=== PATIENT | female | born 1975 | race Caucasian/White ===

== ENCOUNTER 2018-04-20 19:07 | Emergency (ER) | payer MEDICAID ==
--- NOTE | 2018-04-20 19:23 | EDM.PDOC ---
ED HPI GENERAL MEDICAL PROBLEM - General Chief Complaint: General Stated Complaint: eye pain Time Seen by Provider: 04/20/18 19:20 Source of Information: Reports: Patient, Old Records ([facility] chart/EMR) History Limitations: Reports: No Limitations - History of Present Illness INITIAL COMMENTS - FREE TEXT/NARRATIVE: Patient drove herself to the emergency room via private automobile for evaluation of bilateral high "burning" since initiation of her Polytrim ophthalmic solution, which she received from a walk in clinic in [place] 2 days ago. She has had some URI symptoms for the last few days with mild bilateral eye irritation 2 days ago with conjunctivitis apparently diagnosed at that time. Note that she is allergic to sulfa with no significant severe allergic reaction secondary to Polytrim prescription. She also does have a history of allergic rhinitis. No recent history of abdominal pain, heartburn, nausea, diarrhea, melena, gross hematochezia, or any food intolerance, including fatty foods, etc.. The patient also denies any recent fever, cough, wheezing, dyspnea , etc. with previous URI symptoms actually improved at this time. 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: Other Medication(s) (Polytrim as above) eyes Pain Score (Numeric/FACES): 1 - Related Data Allergies Allergy/AdvReac Type Severity Reaction Status Date / Time ciprofloxacin [From Cipro] Allergy Hives Verified 04/20/18 19:10 ciprofloxacin HCl Allergy Hives Verified 04/20/18 19:10 [From Cipro] Penicillins Allergy Hives Verified 04/20/18 19:10 Sulfa (Sulfonamide Allergy Hives Verified 04/20/18 19:10 Antibiotics) Home Meds: Home Meds Escitalopram [Lexapro] 20 mg PO DAILY 04/20/18 [History] Fexofenadine [Latrice] 60 mg PO DAILY 04/20/18 [History] Fluticasone Propionate [Flonase] 1 spray NS BID 04/20/18 [History] hydrOXYzine HCl [hydrOXYzine] 1 - 2 tab PO BEDTIME PRN 04/20/18 [History] Past Medical History HEENT History: Reports: Allergic Rhinitis 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: Musculoskeletal History: Reports: Arthritis, Neck Pain, Chronic, Osteoarthritis Psychiatric History: Reports: Anxiety, Depression Dermatologic History: Reports: Urticaria, Other (See Below) Other Dermatologic History: Recurrent idiopathic urticaria - Past Surgical History Female Surgical History: Reports: Section, Other (See Below) Other Female Surgeries/Procedures: on 08/05/13 - Past Imaging History Past Imaging History: Reports: CAT Scan (CT of the abdomen and pelvis on ), MRI (MRI of the C-spine on 05/22/17), Ultrasound (Right breast ultrasound on 01/07/03) Social & Family History - Tobacco Use Smoking Status *Q: Former Smoker Tobacco Use Within Last Twelve Months: No Years of Tobacco use: 2 Packs/Tins Daily: 0.1 Packs/Tins Daily Comment: Smoked about 2 cigarettes per day in her early 20s. 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 ED EXAM, GENERAL - Physical Exam Exam: See Below Exam Limited By: No Limitations General Appearance: Alert, WD/WN, No Apparent Distress Eye Exam: Bilateral Eye: Conjunctival Injection (Minimal), EOMI, PERRL Ears: Normal External Exam, Normal Canal, Hearing Grossly Normal, Normal TMs Nose: Normal Mucosa, No Blood, Clear Rhinorrhea Throat/Mouth: Normal Inspection, Normal Lips, Normal Teeth, Normal Gums, Normal Oropharynx, Normal Voice, No Airway Compromise. No: Dysphagia, Perioral Cyanosis Head: Atraumatic, Normocephalic. No: Facial Swelling, Facial Tenderness, Sinus Tenderness Neck: Normal Inspection, Supple, Non-Tender, Full Range of Motion. No: Lymphadenopathy (L), Lymphadenopathy (R), Thyromegaly Respiratory/Chest: No Respiratory Distress, Lungs Clear, Normal Breath Sounds, No Accessory Muscle Use, Chest Non-Tender. No: Pleural Rub, Retractions Cardiovascular: Normal Peripheral Pulses, Regular Rate, Rhythm, No Edema, No Gallop, No JVD, No Murmur, No Rub. No: Gallop/S3, Gallop/S4, Friction Rub Peripheral Pulses: 2+: Radial (L), Radial (R) GI/Abdominal: Normal Bowel Sounds, Soft, Non-Tender, No Organomegaly, No Distention, No Abnormal Bruit, No Mass (Female) Exam: Deferred Rectal (Female) Exam: Deferred Back Exam: Normal Inspection, Full Range of Motion. No: CVA Tenderness (L), CVA Tenderness (R), Muscle Spasm Extremities: Normal Inspection, Normal Range of Motion, Non-Tender, Normal Capillary Refill, No Pedal Edema Neurological: Alert, Oriented, CN II-XII Intact, Normal Cognition, Normal Gait, No Motor/Sensory Deficits Psychiatric: Normal Affect, Normal Mood Skin Exam: Warm, Dry, Intact, Normal Color, No Rash. No: Diaphoretic, Wound/ Incision Lymphatic: No Adenopathy Course - Vital Signs Last Recorded V/S: Last Vital Signs Temp 37.0 C 04/20/18 19:22 Pulse 77 04/20/18 19:22 Resp 14 04/20/18 19:22 BP 118/78 04/20/18 19:22 Pulse Ox 100 04/20/18 19:22 Vital Signs - 24 hr 04/20/18 19:22 Temperature [ 37.0 C Oral] Pulse, 77 Peripheral [ Left Pulse Oximetry] Respiratory 14 Rate Blood Pressure 118/78 [Left Upper Arm ] O2 Sat by Pulse 100 Oximetry - Orders/Labs/Meds Labs: None Meds: None - Radiology Interpretation Free Text/Narrative:: None Departure - Departure Time of Disposition: 19:38 Disposition: Home, Self-Care 01 Condition: Good Clinical Impression: Mixed anxiety depressive disorder Allergic rhinitis Qualifiers: Allergic rhinitis trigger: unspecified Allergic rhinitis seasonality: unspecified Qualified Code(s): J30.9 - Allergic rhinitis, unspecified Conjunctivitis Qualifiers: Conjunctivitis type: acute Acute conjunctivitis type: unspecified Laterality: bilateral Qualified Code(s): H10.33 - Unspecified acute conjunctivitis, bilateral - Discharge Information *PRESCRIPTION DRUG MONITORING PROGRAM REVIEWED*: Not Applicable *COPY OF PRESCRIPTION DRUG MONITORING REPORT IN PATIENT PEDRO LUIS: Not Applicable Instructions: Allergic Conjunctivitis, Adult, [id number], Allergies, Adult, [id number], Viral Conjunctivitis, Adult Referrals: PCP,None [Primary Care Provider] - Forms: ED Department Discharge Additional Instructions: 1. Follow up with your regular provider in 10-14 days as needed, if symptoms persist. Bring these discharge instructions with you to that visit.. 2. Artificial tears 2 drops in both eyes 2 hours as needed 3. May change OTC Latrice-D, if plain Latrice is no longer effective. - Problem List & Annotations (1) Conjunctivitis SNOMED Code(s): 2319932 Code(s): H10.9 - UNSPECIFIED CONJUNCTIVITIS Status: Acute Priority: High Onset Date: ~04/18/18 Annotation/Comment:: Based on clinical exam appears to be more allergic conjunctivitis rather than either viral or bacterial conjunctivitis. Symptomatic relief as per discharge instructions. She will discontinue her Polytrim with no true allergic reaction or complications despite her previous allergy to sulfur. Qualifiers: Conjunctivitis type: acute Acute conjunctivitis type: unspecified Laterality: bilateral Qualified Code(s): H10.33 - Unspecified acute conjunctivitis, bilateral (2) Allergic rhinitis SNOMED Code(s): 06939761 Code(s): J30.9 - ALLERGIC RHINITIS, UNSPECIFIED Status: Acute Priority: High Annotation/Comment:: Likely exacerbation of her allergic rhinitis. She is congratulated her about her compliance with Flonase. She should reinitiate her OTC Latrice at this time with change to Latrice-D, if symptoms remain refractory to therapy as per discharge instructions. Qualifiers: Allergic rhinitis trigger: unspecified Allergic rhinitis seasonality: unspecified Qualified Code(s): J30.9 - Allergic rhinitis, unspecified (3) Mixed anxiety depressive disorder SNOMED Code(s): 608911261 Code(s): F41.8 - OTHER SPECIFIED ANXIETY DISORDERS Status: Chronic Priority: Medium Annotation/Comment:: Stable by history - Problem List Review Problem List Initiated/Reviewed/Updated: Yes - Assessment/Plan Assessment:: As above Plan: As above.
[2018-04-20 19:28] VITALS: BP 118/78
== END 2018-04-20 19:38 | disposition home or self-care (01) ==
LOC: LL.ED 19:07
DX: H10.33 Unspecified acute conjunctivitis, bilateral (principal); J30.9 Allergic rhinitis, unspecified; F41.8 Other specified anxiety disorders; F32.9 Major depressive disorder, single episode, unspecified; Z79.899 Other long term (current) drug therapy; Z87.891 Personal history of nicotine dependence; Z88.1 Allergy status to other antibiotic agents; Z88.0 Allergy status to penicillin; Z88.2 Allergy status to sulfonamides
CPT/HCPCS: 99283

== ENCOUNTER 2018-12-20 10:24 | Day surgery (SDC) | payer MEDICAID ==
[~2018-12-20 10:24] MED LIST: Lactated Ringers 1,000 ML IV SCH; Midazolam 1 MG/ML 2 ML SDV ONE; Propofol 200 MG/20 ML SDV ONE; Sodium Chloride 0.9% 10 ML Syringe FLUSH PRN
--- NOTE | 2018-12-20 11:07 | PCM.HPR ---
H & P Addendum review - H & P Addendum Review Date of Original H & P: 12/04/18 Date Reviewed: 12/20/18 Time Reviewed: 11:06 Patient was Examined: No Changes
--- NOTE | 2018-12-20 11:42 | PCM.OPNOTE ---
- General Post-Op/Procedure Note Date of Surgery/Procedure: 12/20/18 Operative Procedure(s): Colonoscopy Findings: Few Sig tics Pre Op Diagnosis: Lower Abd Pain Post-Op Diagnosis: Same Anesthesia Technique: MAC Primary Surgeon: Moises Jordan Anesthesia Provider: Angie Bower Complications: None Condition: Good
[2018-12-20] MEDS ORDERED: Propofol 200 MG/20 ML SDV ONE (11:46)
--- NOTE | 2018-12-21 09:12 | OR ---
Date of Procedure: 12/20/2018 PREOPERATIVE DIAGNOSIS: Lower abdominal pain. POSTOPERATIVE DIAGNOSIS: Sigmoid diverticulosis. PROCEDURE: Colonoscopy. ANESTHESIA: IV sedation. DESCRIPTION OF PROCEDURE: The patient was brought to the procedure room where she was placed on her left side and IV sedation administered. Digital rectal exam was performed which was normal. Colonoscope was inserted and advanced to the level of the cecum without difficulty. Cecal position was confirmed by identifying the appendiceal lumen and ileocecal valve. Prep was good and surfaces were well visualized. Upon withdrawing the scope, the ascending, transverse, and descending colon were normal in appearance. Sigmoid colon has a few small diverticula present. Rectum was normal and retroflexion was normal. Air was removed and the scope withdrawn. The patient tolerated the procedure well and returned to Recovery in stable condition. No source of the patient's pain was identified on the exam today. She could consider having CT scan of the abdomen and pelvis performed if symptoms continue. She should undergo routine colon screening again at age 52. PABLITO ADAMES MD /[id number]
== END 2018-12-20 13:15 | disposition home or self-care (01) ==
LOC: LL.SDS 10:24
PROVIDERS: ATTEND Surgery
DX: K57.30 Diverticulosis of large intestine without perforation or abscess without bleeding (principal); R07.0 Pain in throat; M79.673 Pain in unspecified foot; K11.7 Disturbances of salivary secretion; Z79.899 Other long term (current) drug therapy; Z88.1 Allergy status to other antibiotic agents; Z88.0 Allergy status to penicillin; Z88.2 Allergy status to sulfonamides
CPT/HCPCS: 81025; J2250; J2704; J7120

== ENCOUNTER → 2019-05-21 | Outpatient (CLI) | payer MEDICAID | LOC: LL.CLIN 14:30 | PROVIDERS: ATTEND Nurse Practitioner | DX: N39.0 Urinary tract infection, site not specified (principal); N89.8 Other specified noninflammatory disorders of vagina | CPT/HCPCS: 81001; 87210 ==

== ENCOUNTER 2019-07-05 22:23 | Emergency (ER) | payer MEDICAID ==
[2019-07-05] MEDS ORDERED: Sodium Chloride 0.9% 10 ML Syringe FLUSH PRN (22:39)
[2019-07-05] MEDS ORDERED: Pantoprazole 40 MG Vial IVPUSH ONE (22:39)
[2019-07-05] MEDS ORDERED: Famotidine 20 MG/2 ML SDV IVPUSH ONE (22:39)
--- NOTE | 2019-07-05 22:39 | EDM.PDOC ---
ED HPI GENERAL MEDICAL PROBLEM - General Chief Complaint: General Stated Complaint: L RIB PAIN Time Seen by Provider: 07/05/19 22:30 Source of Information: Reports: Patient, Old Records ([facility] chart/EMR), Significant Other History Limitations: Reports: No Limitations - History of Present Illness INITIAL COMMENTS - FREE TEXT/NARRATIVE: The patient was brought to the emergency room via private automobile by her significant other for evaluation of 8/10 sharp left upper quadrant abdominal pain with symptoms starting about 2 hours prior to arrival. Note that the patient did eat some japanese fries and a cheeseburger at about 20:00 hours this evening. She did have a normal bowel movement yesterday. Note that the patient has been taking about 4 OTC tablets of ibuprofen during the last couple of days secondary to a recent tattoo, however she did not have any ibuprofen today. She denies any known exposure to infection, food poisoning, etc. No recent history of heartburn, nausea, diarrhea, melena, gross hematochezia, or any food intolerance, including fatty foods, etc.. She has not taken any medications for the above symptoms to this point. Patient also denies any recent gross hematuria , colic, or other UTI symptoms. Her LMP 1.5 weeks ago was somewhat heavy however otherwise normal. The patient also denies any recent fever, cough, wheezing, dyspnea, etc.. Onset: Today, Gradual Onset Date: 07/05/19 Onset Time: 20:30 Duration: Constant, Getting Worse Location: Reports: Abdomen. Denies: Head, Face, Neck, Chest, Back, Pelvis, Upper Extremity, Left, Upper Extremity, Right, Radiates to Quality: Reports: Same as Previous Episode, Sharp Severity: Moderate Improves with: Reports: None Worsens with: Reports: None Context: Reports: Other (As above). 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: Other (see below) (None) LUQ Pain Score (Numeric/FACES): 8 - Related Data Allergies Allergy/AdvReac Type Severity Reaction Status Date / Time ciprofloxacin [From Cipro] Allergy Hives Verified 07/05/19 22:24 ciprofloxacin HCl Allergy Hives Verified 07/05/19 22:24 [From Cipro] Penicillins Allergy Hives Verified 07/05/19 22:24 Sulfa (Sulfonamide Allergy Hives Verified 07/05/19 22:24 Antibiotics) Home Meds: Home Meds Fluticasone Propionate [Flonase] 1 spray NS BID 04/20/18 [History] hydrOXYzine HCl [hydrOXYzine] 1 tab PO DAILY PRN 04/20/18 [History] Phentermine HCl 0.5 cap PO DAILY 12/20/18 [History] busPIRone [Buspar] 10 mg PO DAILY 12/20/18 [History] Omeprazole 20 mg PO BIDAC #30 cap.sr 07/05/19 [Rx] Past Medical History HEENT History: Reports: Allergic Rhinitis, Sinusitis. Denies: Cataract, Glaucoma, Hard of Hearing, Impaired Vision, Macular Degeneration, Retinal Detachment Cardiovascular History: Reports: Other (See Below). Denies: Afib, Aneurysm, Arrhythmia, Blood Clots/VTE/DVT, CAD, Heart Murmur, High Cholesterol, Hypertension, SC, Syncope Other Cardiovascular History: She does not know her cholesterol status. Respiratory History: Reports: None. Denies: Asthma, Bronchitis, Recurrent, COPD , Intubation, Previous, PE, Pneumonia, Recurrent, Pneumothorax, Pulmonary Fibrosis, Sleep Apnea, TB Gastrointestinal History: Reports: Chronic Constipation, Chronic Diarrhea, Diverticulosis, Other (See Below). Denies: Celiac Disease, Cholelithiasis, Gastritis, GERD, GI Bleed, Hiatal Hernia, Inflammatory Bowel Disease, Irritable Bowel Syndrome, Jaundice, PUD Other Gastrointestinal History: Fluctuates between constipation and diarrhea. Sigmoid diverticulosis by colonoscopy. Genitourinary History: Reports: UTI, Recurrent. 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 Denies: Amputation, Fracture, Gout, RA, SLE Neurological History: Reports: None. Denies: Cerebral Aneurysms, Concussion, CVA, Headaches, Chronic, Head Trauma, Migraines, MS, Parkinson's, Seizure, TIA, Vertigo Psychiatric History: Reports: Anxiety, Depression. Denies: Abuse, Victim of, ADD, ADHD, Psych Hospitalization(s), PTSD, Suicide Attempt, Suicidal Ideation Endocrine/Metabolic History: Reports: Diabetes, Gestational, Other (See Below). Denies: Diabetes, Type I, Diabetes, Type II, Diabetes Mellitus, Type 3c, Hypothyroidism, IDDM Other Endocrine/Metabolic History: Gestational diabetes with second as above. Hematologic History: Reports: None. Denies: Anemia, Blood Transfusion(s), Iron Deficiency Immunologic History: Reports: None. Denies: AIDS, HIV, SLE Oncologic (Cancer) History: Denies: Basal Cell Carcinoma, Breast, Cervix, Hodgkin's Lymphoma, Leukemia, Lymphoma, Malignant Melanoma, Non-Hodgkin's Lymphoma, Ovarian, Squamous Cell Carcinoma, Uterine Dermatologic History: Reports: Urticaria, Other (See Below). Denies: Eczema, Psoriasis Other Dermatologic History: Recurrent idiopathic urticaria - Infectious Disease History Infectious Disease History: Reports: Chicken Pox. Denies: C-Difficile, Measles , Meningitis, Mononucleosis, MRSA, Mumps, Pertussis (Whooping Cough), Rheumatic Fever, Rubella, Scarlet Fever, Shingles, TB, VRE - Past Surgical History Head Surgeries/Procedures: Reports: None HEENT Surgical History: Reports: Oral Surgery, Other (See Below). Denies: Adenoidectomy, Eye Surgery, Laser Surgery, LASIK, Myringotomy w Tube(s), Naso- Sinus Surgery, Tonsillectomy Other HEENT Surgeries/Procedures: B[place] teeth extraction 4 at age 32. Cardiovascular Surgical History: Reports: None. Denies: Varicose Respiratory Surgical History: Reports: None. Denies: Thoracentesis GI Surgical History: Reports: Colonoscopy, Other (See Below). Denies: Appendectomy, EGD, Hernia, Abdominal, Hernia, Inguinal, Hernia Repair/Other Other GI Surgeries/Procedures: Colonoscopy on 12/20/18. Female Surgical History: Reports: Section, Other (See Below). Denies: Breast Biopsy, D&C, Oophorectomy, Salpingo-Oophorectomy, Tubal Ligation Other Female Surgeries/Procedures: on 08/05/13 as above. Endocrine Surgical History: Reports: None. Denies: Thyroid Biopsy Neurological Surgical History: Reports: None. Denies: C-Spine, Discectomy, Laminectomy, Lumbar Spine, Sacral Spine, Spinal Fusion, Thoracic Spine, Vertebroplasty Musculoskeletal Surgical History: Denies: Arthroscopic Procedure, Carpal Tunnel , Ganglion Cyst, Joint Replacement, Shoulder Surgery Oncologic Surgical History: Reports: None Dermatological Surgical History: Reports: None - Past Imaging History Past Imaging History: Reports: CAT Scan (CT of the abdomen and pelvis using stone protocol on 04/11/[address] scan of the abdomen and pelvis on 04/27.), MRI (MRI of the thoracic spine on 02/18/19. MRI of the C-spine on ), Ultrasound (Bilateral renal ultrasound on 09/04/18. Right breast ultrasound on 01/07/03.) Social & Family History - Family History GI: Reports: Other (See Below) (Son with gastroschisis) - Tobacco Use Smoking Status *Q: Former Smoker Tobacco Use Within Last Twelve Months: No Years of Tobacco use: 2 Packs/Tins Daily: 0.1 Packs/Tins Daily Comment: 2 cigarettes per day in her early 20s. Used Tobacco, but Quit: Yes Smoking Cessation Information Provided To Patient: No Second Hand Smoke Exposure: No Second Hand Smoke Education Provided: No - Caffeine Use Caffeine Use: Reports: Soda (3 Mountain Dew's per day). Denies: Coffee, Energy Drinks, Tea - Alcohol Use Alcohol Use History: Yes Days Per Week of Alcohol Use: 0 Number of Drinks Per Day: 2 Number of Drinks Per Day Comment: Usually once per month. No previous DWIs, problems with alcohol abuse, etc. 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 ED EXAM, GENERAL - Physical Exam Exam: See Below Exam Limited By: No Limitations General Appearance: Alert, WD/WN, No Apparent Distress Eye Exam: Bilateral Eye: EOMI, Normal Inspection (No nystagmus), PERRL Ears: Normal External Exam, Normal Canal, Hearing Grossly Normal, Normal TMs Nose: Normal Inspection, Normal Mucosa, No Blood Throat/Mouth: Normal Inspection, Normal Lips, Normal Teeth, Normal Gums, Normal Oropharynx, Normal Voice, No Airway Compromise. No: Dysphagia, Perioral Cyanosis Head: Atraumatic, Normocephalic. No: Facial Swelling, Facial Tenderness, Sinus Tenderness Neck: Normal Inspection, Supple, Non-Tender, Full Range of Motion. No: Carotid Bruit, Lymphadenopathy (L), Lymphadenopathy (R), Thyromegaly Respiratory/Chest: No Respiratory Distress, Lungs Clear, Normal Breath Sounds, No Accessory Muscle Use, Chest Non-Tender. No: Pleural Rub, Retractions Cardiovascular: Normal Peripheral Pulses, Regular Rate, Rhythm, No Edema, No Gallop, No JVD, No Murmur, No Rub. No: Gallop/S3, Gallop/S4, Friction Rub Peripheral Pulses: 2+: Radial (L), Radial (R), Dorsalis Pedis (L), Dorsalis Pedis (R) GI/Abdominal: Normal Bowel Sounds, Soft, Non-Tender, No Organomegaly, No Distention, No Abnormal Bruit, No Mass. No: Guarding (Female) Exam: Deferred Rectal (Female) Exam: Normal Exam, Normal Rectal Tone, Heme - Stool. No: Black Stool, Bloody Stool, Fecal Impaction, Hemorrhoids, Tenderness (No Jeremy space tenderness) Back Exam: Normal Inspection, Full Range of Motion. No: CVA Tenderness (L), CVA Tenderness (R), Muscle Spasm Extremities: Normal Inspection, Normal Range of Motion, Non-Tender, No Pedal Edema, Normal Capillary Refill. No: Graeme's Sign Neurological: Alert, Oriented, CN II-XII Intact, Normal Cognition, Normal Gait, Normal Reflexes (Negative Babinski's), No Motor/Sensory Deficits Psychiatric: Normal Affect, Normal Mood Skin Exam: Warm, Dry, Intact, Normal Color, No Rash, Stud(s) (Right lateral nasal), Tattoo(s) (Multiple). No: Diaphoretic, Wound/Incision Lymphatic: No Adenopathy Course - Vital Signs Last Recorded V/S: Last Vital Signs Temp 36.6 C 07/05/19 22:25 Pulse 104 H 07/05/19 22:25 Resp 16 07/05/19 22:25 BP 145/84 H 07/05/19 22:25 Pulse Ox 100 07/05/19 22:25 Vital Signs - 24 hr 07/05/19 22:25 Temperature [ 36.6 C Temporal] Pulse, 104 H Peripheral [ Pulse Oximetry] Respiratory 16 Rate Blood Pressure 145/84 H [Right Upper Arm] O2 Sat by Pulse 100 Oximetry - Orders/Labs/Meds Orders: Active Orders 24 hr Category Date Time Status Peripheral IV Care [RC] . DIRECTED Care 07/05/19 22:40 Active Abdomen Series w Chest 1V [CR] Stat Exams 07/05/19 22:39 Taken CULTURE URINE [RM] Stat Lab 07/05/19 22:39 Ordered Obtain Past Medical Record [OM.PC] Urgent Oth 07/05/19 22:39 Active Peripheral IV Insertion Adult [OM.PC] Stat Oth 07/05/19 22:39 Ordered Resuscitation Status Stat Resus Stat 07/05/19 22:39 Ordered Labs: Laboratory Tests 07/05/19 07/05/19 07/05/19 Range/Units 22:45 22:45 22:45 WBC 10.5 H (4.0-10.2) K/uL RBC 4.42 (3.77-5.09) M/uL Hgb 12.7 (11.7-15.5) g/dL Hct 38.5 (34.0-46.0) % MCV 87.1 (84.0-98.0) fL MCH 28.7 (28.2-33.3) pg MCHC 33.0 (31.7-36.0) g/dL RDW 13.2 (11.2-14.1) % Plt Count 284 (150-350) K/uL Neut % (Auto) 59.7 (45.0-80.0) % Lymph % (Auto) 25.9 (10.0-50.0) % [place] % (Auto) 12.2 (2.0-14.0) % Eos % (Auto) 2.0 (0.0-5.0) % Baso % (Auto) 0.2 (0.0-2.0) % Neut # (Auto) 6.24 (1.40-7.00) K/uL Lymph # (Auto) 2.71 (0.50-3.50) K/uL [place] # (Auto) 1.28 H (0.00-1.00) K/uL Eos # (Auto) 0.21 (0.00-0.50) K/uL Baso # (Auto) 0.02 (0.00-0.20) K/uL PT (9.5-12.0) SEC INR APTT (21.0-31.3) SEC Sodium (136-145) mmol/L Potassium (3.5-5.1) mmol/L Chloride (98-107) mmol/L Carbon Dioxide (21.0-32.0) mmol/L BUN (7-18) mg/dL Creatinine (0.51-1.17) mg/dL Est Cr Clr Drug Dosing mL/min Estimated GFR (MDRD) mL/min Glucose (74-106) mg/dL Hemoglobin A1c 5.4 (4.3-5.7) % Lactic Acid (0.4-2.0) mmol/L Uric Acid (2.6-7.2) mg/dL Calcium (8.5-10.1) mg/dL Magnesium (1.8-2.4) mg/dL Total Bilirubin (0.2-1.0) mg/dL AST (15-37) U/L ALT (12-78) U/L Alkaline Phosphatase (46-116) IU/L Total Protein (6.4-8.2) g/dL Albumin (3.4-5.0) g/dL Amylase 64 (25-115) U/L Lipase (73-393) U/L HCG, Qual (NEGATIVE) Specimen Type Urine Color Urine Appearance Urine pH (5.0-9.0) Ur Specific [place] (1.005-1.030) Urine Protein (NEGATIVE) mg/dL Urine Glucose (UA) (NEGATIVE) mg/dL Urine Ketones (NEGATIVE) mg/dL Urine Occult Blood (NEGATIVE) Urine Nitrite (NEGATIVE) Urine Bilirubin (NEGATIVE) Urine Urobilinogen (0.2-1.0) E.U./dL Ur Leukocyte Esterase (NEGATIVE) Urine RBC /HPF Urine WBC /HPF Ur Epithelial Cells /LPF Urine Bacteria (NONE TO FEW) /HPF 07/05/19 07/05/19 07/05/19 Range/Units 22:45 22:45 22:45 WBC (4.0-10.2) K/uL RBC (3.77-5.09) M/uL Hgb (11.7-15.5) g/dL Hct (34.0-46.0) % MCV (84.0-98.0) fL MCH (28.2-33.3) pg MCHC (31.7-36.0) g/dL RDW (11.2-14.1) % Plt Count (150-350) K/uL Neut % (Auto) (45.0-80.0) % Lymph % (Auto) (10.0-50.0) % [place] % (Auto) (2.0-14.0) % Eos % (Auto) (0.0-5.0) % Baso % (Auto) (0.0-2.0) % Neut # (Auto) (1.40-7.00) K/uL Lymph # (Auto) (0.50-3.50) K/uL [place] # (Auto) (0.00-1.00) K/uL Eos # (Auto) (0.00-0.50) K/uL Baso # (Auto) (0.00-0.20) K/uL PT 10.9 (9.5-12.0) SEC INR 1.0 APTT 32.2 H (21.0-31.3) SEC Sodium 139 (136-145) mmol/L Potassium 3.2 L (3.5-5.1) mmol/L Chloride 100 (98-107) mmol/L Carbon Dioxide 28.0 (21.0-32.0) mmol/L BUN 11 (7-18) mg/dL Creatinine 0.89 (0.51-1.17) mg/dL Est Cr Clr Drug Dosing 77.87 mL/min Estimated GFR (MDRD) > 60 mL/min Glucose 120 H (74-106) mg/dL Hemoglobin A1c (4.3-5.7) % Lactic Acid 1.2 (0.4-2.0) mmol/L Uric Acid 4.6 (2.6-7.2) mg/dL Calcium 8.9 (8.5-10.1) mg/dL Magnesium 2.0 (1.8-2.4) mg/dL Total Bilirubin 0.3 (0.2-1.0) mg/dL AST 16 (15-37) U/L ALT 25 (12-78) U/L Alkaline Phosphatase 105 (46-116) IU/L Total Protein 7.7 (6.4-8.2) g/dL Albumin 3.9 (3.4-5.0) g/dL Amylase (25-115) U/L Lipase 119 (73-393) U/L HCG, Qual (NEGATIVE) Specimen Type Urine Color Urine Appearance Urine pH (5.0-9.0) Ur Specific [place] (1.005-1.030) Urine Protein (NEGATIVE) mg/dL Urine Glucose (UA) (NEGATIVE) mg/dL Urine Ketones (NEGATIVE) mg/dL Urine Occult Blood (NEGATIVE) Urine Nitrite (NEGATIVE) Urine Bilirubin (NEGATIVE) Urine Urobilinogen (0.2-1.0) E.U./dL Ur Leukocyte Esterase (NEGATIVE) Urine RBC /HPF Urine WBC /HPF Ur Epithelial Cells /LPF Urine Bacteria (NONE TO FEW) /HPF 07/05/19 07/05/19 Range/Units 22:45 23:32 WBC (4.0-10.2) K/uL RBC (3.77-5.09) M/uL Hgb (11.7-15.5) g/dL Hct (34.0-46.0) % MCV (84.0-98.0) fL MCH (28.2-33.3) pg MCHC (31.7-36.0) g/dL RDW (11.2-14.1) % Plt Count (150-350) K/uL Neut % (Auto) (45.0-80.0) % Lymph % (Auto) (10.0-50.0) % [place] % (Auto) (2.0-14.0) % Eos % (Auto) (0.0-5.0) % Baso % (Auto) (0.0-2.0) % Neut # (Auto) (1.40-7.00) K/uL Lymph # (Auto) (0.50-3.50) K/uL [place] # (Auto) (0.00-1.00) K/uL Eos # (Auto) (0.00-0.50) K/uL Baso # (Auto) (0.00-0.20) K/uL PT (9.5-12.0) SEC INR APTT (21.0-31.3) SEC Sodium (136-145) mmol/L Potassium (3.5-5.1) mmol/L Chloride (98-107) mmol/L Carbon Dioxide (21.0-32.0) mmol/L BUN (7-18) mg/dL Creatinine (0.51-1.17) mg/dL Est Cr Clr Drug Dosing mL/min Estimated GFR (MDRD) mL/min Glucose (74-106) mg/dL Hemoglobin A1c (4.3-5.7) % Lactic Acid (0.4-2.0) mmol/L Uric Acid (2.6-7.2) mg/dL Calcium (8.5-10.1) mg/dL Magnesium (1.8-2.4) mg/dL Total Bilirubin (0.2-1.0) mg/dL AST (15-37) U/L ALT (12-78) U/L Alkaline Phosphatase (46-116) IU/L Total Protein (6.4-8.2) g/dL Albumin (3.4-5.0) g/dL Amylase (25-115) U/L Lipase (73-393) U/L HCG, Qual Negative (NEGATIVE) Specimen Type Urinvoid Urine Color Yellow Urine Appearance Clear Urine pH 6.5 (5.0-9.0) Ur Specific [place] 1.010 (1.005-1.030) Urine Protein Negative (NEGATIVE) mg/dL Urine Glucose (UA) Negative (NEGATIVE) mg/dL Urine Ketones Negative (NEGATIVE) mg/dL Urine Occult Blood Negative (NEGATIVE) Urine Nitrite Negative (NEGATIVE) Urine Bilirubin Negative (NEGATIVE) Urine Urobilinogen 0.2 (0.2-1.0) E.U./dL Ur Leukocyte Esterase Negative (NEGATIVE) Urine RBC Not seen /HPF Urine WBC 0-5 /HPF Ur Epithelial Cells Rare /LPF Urine Bacteria Moderate H (NONE TO FEW) /HPF Urine specimen set up for culture and sensitivity. Microbiology 07/05/19 23:05 Stool Occult Blood (JACQUE) - Final Stool / Feces NEGATIVE OCCULT BLOOD REFERENCE RANGE: NEGATIVE Meds: Medications Discontinued Medications Generic Name Dose Route Start Last Admin Trade Name Cammy PRN Reason Stop Dose Admin Famotidine 40 mg 07/05/19 22:39 07/05/19 22:55 Pepcid IVPUSH 07/05/19 22:40 40 mg ONETIME ONE Administration Pantoprazole Sodium 40 mg 07/05/19 22:39 07/05/19 22:51 Protonix Iv IVPUSH 07/05/19 22:40 40 mg ONETIME ONE Administration Potassium Chloride 20 meq 07/06/19 23:26 Klor-Con M20 PO 07/06/19 23:27 ONETIME ONE Potassium Chloride 20 meq 07/05/19 23:35 07/05/19 23:39 Klor-Con M20 PO 07/05/19 23:36 20 meq ONETIME ONE Administration Sodium Chloride 10 ml 07/05/19 22:39 07/05/19 22:55 Saline Flush FLUSH 10 ml ASDIRECTED PRN Administration Keep Vein Open - Radiology Interpretation Free Text/Narrative:: Acute abdominal x-rays shows moderate diffuse stool with nonspecific bowel gaseous pattern with no fluid levels, free air, ileus, obstruction, pulmonary infiltrates, cardiomegaly, and the thorax, etc. Departure - Departure Time of Disposition: 23:59 Disposition: Home, Self-Care 01 Condition: Good Clinical Impression: Mixed anxiety depressive disorder, Hypokalemia Allergic rhinitis Qualifiers: Allergic rhinitis trigger: unspecified Allergic rhinitis seasonality: unspecified Qualified Code(s): J30.9 - Allergic rhinitis, unspecified Osteoarthritis Qualifiers: Osteoarthritis location: multiple joints Osteoarthritis type: primary Qualified Code(s): M15.0 - Primary generalized (osteo)arthritis Abdominal pain Qualifiers: Abdominal location: left upper quadrant Qualified Code(s): R10.12 - Left upper quadrant pain - Discharge Information *PRESCRIPTION DRUG MONITORING PROGRAM REVIEWED*: Not Applicable *COPY OF PRESCRIPTION DRUG MONITORING REPORT IN PATIENT PEDRO LUIS: Not Applicable Prescriptions: Omeprazole 20 mg PO BIDAC #30 cap.sr Instructions: Gastritis, Adult, Qpdc-il-Nonm, Abdominal Pain, Adult, Easy-to- Read, Diverticulosis Referrals: [facility] CONSULTANT [Primary Care Provider] - Forms: ED Department Discharge Additional Instructions: 1. Followup with your regular provider in 7 days as directed for reevaluation and recommended repeat CBC and basic metabolic panel. Bring these discharge instructions with you to that visit. 2. Tylenol 650 mg by mouth every 4 hours when necessary as directed. Avoid NSAIDs,including aspirin, ibuprofen, Aleve, etc. as discussed 3. Mckean diet including encouragement of oral fluids such as sports drinks, etc. for 24-48 hours as directed. Advance to high-fiber, diverticulosis diet as tolerated thereafter. 4. Immediately after this visit verify that your cellular telephone's voicemail has been activated and is empty. Also verify that your home telephone 's answering machine is operating properly and has space to receive messages. Note that it is sometimes necessary for us to be able to contact you at a later date to discuss your medical care. 5. Please remember that we are ALWAYS here for you and want to answer any questions you may have. Feel free to call the hospital any time and we call you back DEMARCUS. Sepsis Event Note - Evaluation Sepsis Screening Result: No Definite Risk - Focused Exam Vital Signs: Vital Signs Temp Pulse Resp BP Pulse Ox 07/05/19 22:25 36.6 C 104 H 16 145/84 H 100 Date Exam was Performed: 07/06/19 Time Exam was Performed: 08:21 - Problem List & Annotations (1) Abdominal pain SNOMED Code(s): 96982488 Code(s): R10.9 - UNSPECIFIED ABDOMINAL PAIN Status: Acute Priority: High Onset Date: 07/05/19 Annotation/Comment:: Abdominal pain likely secondary to gastritis from recent ibuprofen use. Overall excellent results with IV Protonix and high-dose IV Pepcid. Symptomatic relief for now. Close follow-up by regular provider as per discharge instructions with consideration of further GI workup depending on her clinical course, including possible EGD, stool specimen for H. pylori antigen, etc.. Note recent colonoscopy with no clinical evidence of diverticulitis today. She denies previous fatty food intolerance in spite of today's supper, however consider possible gallbladder ultrasound and/ or HIDA scan, if symptoms remain refractory to therapy. Note borderline mild leukocytosis today possibly secondary to stress reaction with no fever, etc.. Qualifiers: Abdominal location: left upper quadrant Qualified Code(s): R10.12 - Left upper quadrant pain (2) Allergic rhinitis SNOMED Code(s): 96617586 Code(s): J30.9 - ALLERGIC RHINITIS, UNSPECIFIED Status: Acute Priority: High Annotation/Comment:: Stable by history Qualifiers: Allergic rhinitis trigger: unspecified Allergic rhinitis seasonality: unspecified Qualified Code(s): J30.9 - Allergic rhinitis, unspecified (3) Osteoarthritis SNOMED Code(s): 302230725 Code(s): M19.90 - UNSPECIFIED OSTEOARTHRITIS, UNSPECIFIED SITE Status: Chronic Priority: Medium Annotation/Comment:: Stable by history Qualifiers: Osteoarthritis location: multiple joints Osteoarthritis type: primary Qualified Code(s): M15.0 - Primary generalized (osteo)arthritis (4) Mixed anxiety depressive disorder SNOMED Code(s): 279178518 Code(s): F41.8 - OTHER SPECIFIED ANXIETY DISORDERS Status: Chronic Priority: Medium Annotation/Comment:: Stable by history (5) Hypokalemia SNOMED Code(s): 79970034 Code(s): E87.6 - HYPOKALEMIA Status: Acute Priority: Medium Onset Date : 07/05/19 Annotation/Comment:: Mild hypokalemia today with no history of diarrhea, emesis, etc. Potassium chloride given in the emergency room. Otherwise observe for now with close follow-up with regular provider. - Problem List Review Problem List Initiated/Reviewed/Updated: Yes - My Orders Last 24 Hours: My Active Orders 07/05/19 22:39 Abdomen Series w Chest 1V [CR] Stat CULTURE URINE [RM] Stat Obtain Past Medical Record [OM.PC] Urgent Peripheral IV Insertion Adult [OM.PC] Stat Resuscitation Status Stat 07/05/19 22:40 Peripheral IV Care [RC] . DIRECTED - Assessment/Plan Last 24 Hours: My Active Orders 07/05/19 22:39 Abdomen Series w Chest 1V [CR] Stat CULTURE URINE [RM] Stat Obtain Past Medical Record [OM.PC] Urgent Peripheral IV Insertion Adult [OM.PC] Stat Resuscitation Status Stat 07/05/19 22:40 Peripheral IV Care [RC] . DIRECTED Assessment:: As above Plan: As above. Extensive precautions were given to the patient and her significant other, who are in agreement with the treatment plan. See Patient Instructions for further treatment and plan.
[2019-07-05 23:06] LABS: HEMOGLOBIN A1C 5.4 % (4.3-5.7)
[2019-07-05 23:10] LABS: CHLORIDE,CL 100 mmol/L (98-107); SODIUM,NA 139 mmol/L (136-145)
[2019-07-05] MEDS ORDERED: Potassium Chloride 20 MEQ Tab.ER PO ONE (23:35)
[2019-07-06] MEDS ORDERED: Potassium Chloride 20 MEQ Tab.ER PO ONE (23:26)
== END 2019-07-05 23:59 | disposition home or self-care (01) ==
LOC: LL.ED 22:23
DX: R10.12 Left upper quadrant pain (principal); E87.6 Hypokalemia; F41.8 Other specified anxiety disorders; J30.9 Allergic rhinitis, unspecified; M89.49 Other hypertrophic osteoarthropathy, multiple sites; Z87.891 Personal history of nicotine dependence; Z88.1 Allergy status to other antibiotic agents; Z88.0 Allergy status to penicillin; Z88.2 Allergy status to sulfonamides; Z79.899 Other long term (current) drug therapy
CPT/HCPCS: 36415; 74022; 80053; 81001; 82150; 82272; 83036; 83605; 83690; 83735; 84550; 84703; 85025; 85610; 85730; 87086; 96374; 96375; 99284; A9270; C9113; J3490